=== PATIENT | male | born 1940 | race Caucasian/White ===

== ENCOUNTER 2018-09-26 15:03 | Emergency (ER) | payer OTHER ==
[~2018-09-26] VITALS: Ht 170.2 cm; Wt 80.7 kg
[2018-09-26 15:11] VITALS: BP 147/86; Ht 170.2 cm; Wt 80.7 kg
== END 2018-09-26 15:42 | disposition home or self-care (01) ==
LOC: ED 15:03
DX: S61.217D Laceration without foreign body of left little finger without damage to nail, subsequent encounter (principal); I10 Essential (primary) hypertension; W25.XXXD Contact with sharp glass, subsequent encounter